=== PATIENT | female | born 1970 ===

== ENCOUNTER 2021-08-09 07:30 | Inpatient (IN) | payer OTHER ==
[~2021-08-09] VITALS: Ht 165.1 cm; Wt 113.4 kg
[2021-08-09] MEDS ORDERED: ZYRTEC10 M3 PO (10:37)
[2021-08-09] MEDS ORDERED: TOPROL XL50 M1 PO (10:37)
[2021-08-09] MEDS ORDERED: SYNTHROID100 MCG PO (10:37)
[2021-08-09] MEDS ORDERED: SINGULAIR10 MG PO (10:38)
[2021-08-09] MEDS ORDERED: SYMBICORT 16010.2 GM IH (10:38)
== END 2021-08-15 17:00 | disposition home or self-care (01) | DRG 743 ==
LOC: OB/GYN 08-13 07:30 → O/R 08-13 14:10 → OB/GYN 08-14 00:22
PROVIDERS: ADMIT Student in an Organized Health Care Education/Training Program; ATTEND Student in an Organized Health Care Education/Training Program
PROC: 0UT70ZZ Resection of Bilateral Fallopian Tubes, Open Approach (ICD-10-PCS; 2021-08-13)
PROC: 0UT90ZZ Resection of Uterus, Open Approach (ICD-10-PCS; principal; 2021-08-13 09:00)
DX: D25.1 Intramural leiomyoma of uterus (principal); D25.2 Subserosal leiomyoma of uterus; Z20.822 Contact with and (suspected) exposure to COVID-19